=== PATIENT | female | born 1945 | race Caucasian/White ===

== ENCOUNTER 2016-06-16 18:42 | Emergency (ER) | payer MEDICARE ==
[~2016-06-16] VITALS: Ht 139.7 cm; Wt 57.0 kg
[2016-06-16 18:52] VITALS: BP 112/43
== END 2016-06-16 20:51 | disposition home or self-care (01) ==
LOC: ED 19:00
DX: F10.120 Alcohol abuse with intoxication, uncomplicated (principal); F10.20 Alcohol dependence, uncomplicated
CPT/HCPCS: 99283

== ENCOUNTER 2016-07-31 18:34 | Emergency (ER) | payer MEDICARE ==
[~2016-07-31] VITALS: Ht 154.9 cm; Wt 45.0 kg
[2016-07-31 18:37] VITALS: BP 117/65
== END 2016-07-31 20:50 | disposition home or self-care (01) ==
LOC: ED 20:30
DX: F10.220 Alcohol dependence with intoxication, uncomplicated (principal)
CPT/HCPCS: 99283

== ENCOUNTER 2016-09-04 10:32 | Emergency (ER) | payer MEDICARE ==
[~2016-09-04] VITALS: Ht 149.9 cm; Wt 53.6 kg
[2016-09-04 10:34] VITALS: BP 142/83
[2016-09-04] MEDS ORDERED: ONDANSETRON 2MG/ML, 2ML ONE (11:09)
[2016-09-04] MEDS ORDERED: MECLIZINE CHEWABLE 25 MG TAB ONE (11:09)
[2016-09-04] MEDS ORDERED: SODIUM CHLORIDE FLUSH 10ML SYR IVF ONE (11:30)
[2016-09-04] MEDS ORDERED: SODIUM CHLORIDE 0.9% 1,000ML IVBOLUS ONE (11:30)
[2016-09-04] MEDS ORDERED: MECLIZINE CHEWABLE 25 MG TAB PO ONE (11:30)
[2016-09-04] MEDS ORDERED: ONDANSETRON 2MG/ML, 2ML IVPush ONE (11:30)
[2016-09-04 11:52] LABS: BLOOD UREA NITROGEN 20 mg/dL (7-18)
== END 2016-09-04 12:56 | disposition home or self-care (01) ==
LOC: ED 10:56
DX: H81.13 Benign paroxysmal vertigo, bilateral (principal)
CPT/HCPCS: 36415; 70450; 80048; 82040; 85025; 96374; 99285; J2405; J7030

== ENCOUNTER 2016-11-13 18:58 | Emergency (ER) | payer MEDICARE ==
[~2016-11-13] VITALS: Ht 152.4 cm; Wt 55.0 kg
[2016-11-13 19:01] VITALS: BP 91/46
== END 2016-11-13 20:23 | disposition home or self-care (01) ==
LOC: ED 19:19
DX: F10.220 Alcohol dependence with intoxication, uncomplicated (principal)
CPT/HCPCS: 99283

== ENCOUNTER 2017-04-08 17:09 | Emergency (ER) | payer MEDICARE ==
[~2017-04-08] VITALS: Ht 162.6 cm; Wt 54.0 kg
[2017-04-08] MEDS ORDERED: TRAZ100T15 PO (17:22)
[2017-04-08] MEDS ORDERED: CYAN100014 PO (17:22)
[2017-04-08] MEDS ORDERED: FLUO10CA13 PO (17:23)
[2017-04-08] MEDS ORDERED: SODIUM CHLORIDE FLUSH 10ML SYR IVF ONE (17:30)
[2017-04-08] MEDS ORDERED: SODIUM CHLORIDE 0.9% 1,000ML IVBOLUS ONE (17:30)
[2017-04-08 18:08] LABS: BASOPHILS # (AUTO) 0.01 x10^3/uL (0-0.1); BASOPHILS % (AUTO) 0 % (0-1); EOSINOPHILS # (AUTO) 0.04 x10^3/uL (0-0.4); EOSINOPHILS % (AUTO) 1 % (1-7); LYMPHOCYTES # (AUTO) 0.85 x10^3/uL (1-3.4); LYMPHOCYTES % (AUTO) 15 % (22-44); MD NO; MEAN CORPUSCULAR HEMOGLOBIN 35.5 pg (27.0-34.8); MEAN CORPUSCULAR HGB CONC 33.6 g/dL (32.4-35.8); MEAN CORPUSCULAR VOLUME 105.6 fL (80-100); MEAN PLATELET VOLUME 7.7 fL (7.4-10.4); MONOCYTES # (AUTO) 0.37 x10^3/uL (0.2-0.8); MONOCYTES % (AUTO) 7 % (2-9); NEUTROPHILS # (AUTO) 4.34 x10^3/uL (1.8-6.8); NEUTROPHILS % (AUTO) 77 % (42-75); PLATELET COUNT 226 x10^3/uL (130-400); RED BLOOD COUNT 4.26 x10^6/uL (3.82-5.3); RED CELL DISTRIBUTION WIDTH 16.3 % (9.6-15.2)
[2017-04-08 18:16] LABS: INTERNATIONAL NORMALIZED RATIO 0.93 (0.93-1.1); PROTHROMBIN TIME 9.7 Seconds (9.6-11.5)
[2017-04-08 18:20] LABS: ALANINE AMINOTRANSFERASE 19 U/L (12-78); ALBUMIN 4.1 g/dL (3.4-5.0); CALCIUM 8.8 mg/dL (8.5-10.1); CHLORIDE 107 mmol/L (98-107)
[2017-04-08 18:26] LABS: ALKALINE PHOSPHATASE 53 U/L (45-117); ANION GAP 11 mmol/L (5-15); BILIRUBIN,TOTAL 0.5 mg/dL (0.2-1.0); TOTAL PROTEIN 7.7 g/dL (6.4-8.2)
[2017-04-08 19:25] VITALS: BP 98/50
== END 2017-04-08 19:50 | disposition home or self-care (01) ==
LOC: ED 19:35
DX: S09.90XA Unspecified injury of head, initial encounter (principal); F10.229 Alcohol dependence with intoxication, unspecified; X58.XXXA Exposure to other specified factors, initial encounter; Y93.89 Activity, other specified; Y92.89 Other specified places as the place of occurrence of the external cause; Y99.8 Other external cause status
CPT/HCPCS: 36415; 70450; 70486; 72125; 80053; 85025; 85610; 96360; 99285; J7030

== ENCOUNTER 2017-07-02 18:10 | Emergency (ER) | payer MEDICARE ==
[~2017-07-02] VITALS: Ht 149.9 cm; Wt 54.0 kg
[~2017-07-02 18:10] MED LIST: CYAN100014 PO; FLUO10CA13 PO; TRAZ100T15 PO
[2017-07-02 18:11] VITALS: BP 106/51
== END 2017-07-02 21:30 | disposition home or self-care (01) ==
LOC: ED 20:03
DX: F10.220 Alcohol dependence with intoxication, uncomplicated (principal)
CPT/HCPCS: 99283

== ENCOUNTER 2017-07-05 15:26 | Emergency (ER) | payer MEDICARE ==
[~2017-07-05] VITALS: Ht 152.4 cm; Wt 53.0 kg
[2017-07-05 17:00] VITALS: BP 92/54
== END 2017-07-05 17:47 | disposition home or self-care (01) ==
LOC: ED 16:52
DX: F10.120 Alcohol abuse with intoxication, uncomplicated (principal); W18.30XA Fall on same level, unspecified, initial encounter; Y93.89 Activity, other specified; Y99.8 Other external cause status; Y92.89 Other specified places as the place of occurrence of the external cause
CPT/HCPCS: 99283

== ENCOUNTER 2017-07-23 19:36 | Emergency (ER) | payer MEDICARE ==
[~2017-07-23] VITALS: Ht 152.4 cm; Wt 57.0 kg
[2017-07-23] MEDS ORDERED: DIPH,PERTUSS(ACELL),TET VAC/PF 0.5 ML IM-VACC ONE ×2 (20:00→20:07)
[2017-07-23 21:21] VITALS: BP 139/76
== END 2017-07-23 21:32 | disposition home or self-care (01) ==
LOC: ED 20:54
DX: S01.01XA Laceration without foreign body of scalp, initial encounter (principal); W18.30XA Fall on same level, unspecified, initial encounter; W19.XXXA Unspecified fall, initial encounter; Y93.89 Activity, other specified; Y92.89 Other specified places as the place of occurrence of the external cause; Y99.8 Other external cause status
CPT/HCPCS: 12001; 70450; 72125; 90471; 90715; 99284

== ENCOUNTER 2017-07-30 11:37 | Emergency (ER) | payer MEDICARE ==
[~2017-07-30] VITALS: Ht 152.4 cm; Wt 54.5 kg
[2017-07-30 11:41] VITALS: BP 145/76
== END 2017-07-30 12:33 | disposition home or self-care (01) ==
LOC: ED 12:20
DX: S01.01XD Laceration without foreign body of scalp, subsequent encounter (principal); F10.20 Alcohol dependence, uncomplicated; X58.XXXD Exposure to other specified factors, subsequent encounter
CPT/HCPCS: 99282

== ENCOUNTER 2017-10-01 17:00 | Emergency (ER) | payer MEDICARE ==
[~2017-10-01] VITALS: Ht 165.1 cm; Wt 68.2 kg
[2017-10-01 17:02] VITALS: BP 119/61
== END 2017-10-01 17:21 | disposition home or self-care (01) ==
LOC: ED 17:15
DX: F10.120 Alcohol abuse with intoxication, uncomplicated (principal); Z72.9 Problem related to lifestyle, unspecified
CPT/HCPCS: 99283

== ENCOUNTER 2017-12-20 15:58 | Emergency (ER) | payer MEDICARE ==
[~2017-12-20] VITALS: Ht 154.9 cm; Wt 70.0 kg
[~2017-12-20 15:58] MED LIST changes: +TRAZ-137 PO; -TRAZ100T15 PO
[2017-12-20 16:19] LABS: BASOPHILS # (AUTO) 0.05 x10^3/uL (0-0.1); BASOPHILS % (AUTO) 1 % (0-1); EOSINOPHILS # (AUTO) 0.15 x10^3/uL (0-0.4); EOSINOPHILS % (AUTO) 2 % (1-7); LYMPHOCYTES # (AUTO) 1.43 x10^3/uL (1-3.4); LYMPHOCYTES % (AUTO) 21 % (22-44); MD NO; MEAN CORPUSCULAR HEMOGLOBIN 34.7 pg (27.0-34.8); MEAN CORPUSCULAR HGB CONC 33.7 g/dL (32.4-35.8); MEAN CORPUSCULAR VOLUME 102.9 fL (80-100); MEAN PLATELET VOLUME 8.3 fL (7.4-10.4); MONOCYTES # (AUTO) 0.42 x10^3/uL (0.2-0.8); MONOCYTES % (AUTO) 6 % (2-9); NEUTROPHILS # (AUTO) 4.72 x10^3/uL (1.8-6.8); NEUTROPHILS % (AUTO) 70 % (42-75); PLATELET COUNT 211 x10^3/uL (130-400); RED BLOOD COUNT 3.83 x10^6/uL (3.82-5.3); RED CELL DISTRIBUTION WIDTH 14.1 % (9.6-15.2)
[2017-12-20 16:32] LABS: ALANINE AMINOTRANSFERASE 24 U/L (12-78); ALBUMIN 3.4 g/dL (3.4-5.0); ANION GAP 10 mmol/L (5-15); CALCIUM 7.9 mg/dL (8.5-10.1); CHLORIDE 112 mmol/L (98-107); CREATININE 0.64 mg/dL (0.55-1.02)
[2017-12-20 16:33] LABS: ALKALINE PHOSPHATASE 58 U/L (45-117); BILIRUBIN,TOTAL 0.2 mg/dL (0.2-1.0); TOTAL PROTEIN 6.5 g/dL (6.4-8.2)
[2017-12-20 17:00] VITALS: BP 107/47
== END 2017-12-20 17:02 | disposition home or self-care (01) ==
LOC: ED 16:17
DX: F10.120 Alcohol abuse with intoxication, uncomplicated (principal); R41.82 Altered mental status, unspecified
CPT/HCPCS: 36415; 80053; 85025; 99284

== ENCOUNTER 2020-03-13 15:50 | Emergency (ER) | payer MEDICARE ==
[~2020-03-13] VITALS: Ht 162.6 cm; Wt 68.0 kg
[~2020-03-13 15:50] MED LIST changes: -TRAZ-137 PO; +TRAZ-175 PO
--- NOTE | 2020-03-13 16:04 | NUR ---
PT BIB EMS AFTER A WITNESSED GROUND LEVEL FALL. PER EMS THEY WERE CALLED ON HER TWICE. THE FIRST CALL FOR SITTING IN THE MIDDLE OF THE STREET "SHE WAS AOX4, YET COMBATIVE, SHE LEFT OUR CARE AMA. ABOUT 20 MINUTES WE GOT ANOTHER CALL FROM AN [facility] WHERE THE CAREER DEVELOPMENT SPECIALIST HAD SEEN HER WALKING AND FALL FACE FIRST, FACE PLANTING INTO THE PAVEMENT. WHEN WE ARRIVED THE SECOND TIME SHE WAS AOX2 AND MORE COMBATIVE" PT IN C COLLAR. BLOODY MOUTH. LEFT EYE BRUISE. PT REFUSING TO ANSWER "AO" QUESTIONS APPROPRIATELY - "I KNOW WHAT YOU DO HERE! I KNOW WHAT YOURE TRYING TO DO! I AM FINE" PER THE COURIER DELIVERY DRIVER "IT DIDNT SEEM LIKE A SZ TO ME" PT CONNECTED TO MONITORING EQUIPMENT, SIDE RAILS UP, RESTING IN GURNEY WITHIN VIEW OF NURSES STATION
[2020-03-13 16:36] LABS: BASOPHILS % (AUTO) 1 % (0-1); EOSINOPHILS % (AUTO) 1 % (1-7); LYMPHOCYTES % (AUTO) 13 % (22-44); MEAN CORPUSCULAR HGB CONC 33.9 g/dL (32.4-35.8); MEAN PLATELET VOLUME 8.4 fL (7.4-10.4); MONOCYTES % (AUTO) 5 % (2-9); NEUTROPHILS % (AUTO) 81 % (42-75); PLATELET COUNT 211 x10^3/uL (130-400); RED BLOOD COUNT 4.75 x10^6/uL (3.82-5.3); RED CELL DISTRIBUTION WIDTH 13.8 % (9.6-15.2)
[2020-03-13 16:38] LABS: MD NO
[2020-03-13 16:52] LABS: ALBUMIN 3.9 g/dL (3.4-5.0); ANION GAP 8 mmol/L (5-15); CALCIUM 8.7 mg/dL (8.5-10.1); CHLORIDE 108 mmol/L (98-107); CREATININE 0.93 mg/dL (0.55-1.02)
--- NOTE | 2020-03-13 17:02 | NUR ---
pt to CT
[2020-03-13] MEDS ORDERED: ZIPRASIDONE 20 MG INJ IM ONE ×3 (17:30→18:00)
--- NOTE | 2020-03-13 17:37 | NUR ---
PT REPEATEDLY GETTING OUT OF BED. UNSTABLE ON HER FEET. PT ESCORTED BACK TO BED WITH GURADED ASSIST. PT COMBATIVE - SWING HER ARMS. "FUCK YOU, FUCK YOU, I HOPE YOU ". NOTIFIED. SEE MAR FOR INTERVENTIONS
--- NOTE | 2020-03-13 18:05 | NUR ---
PT UP OUT OF BED, RIPPED IV OUT OF HER HAND. SCREAMING "F YOU". PT ESCORTED BACK TO BED WITH GUARD ASSIST. MEDICATED PER MAR. WILL CONTINUE TO MONITOR
--- NOTE | 2020-03-13 18:21 | NUR ---
CT SCAN DELAYED TO PT BEHAVIOR. CT NOTIFIED THAT PT IS ABLE TO CONDUCT SCAN AT THIS TIME
--- NOTE | 2020-03-13 18:29 | NUR ---
PT RESTING IN [facility]. PLACED ON MONITORS. EKG IS BEING COMPLETED
--- NOTE | 2020-03-13 18:57 | NUR ---
PT RESTING ON GURNEY. CALM. VSS. NAD. WILL CONTINUE TO MONITOR
--- NOTE | 2020-03-13 19:54 | NUR ---
PT RESTING IN [facility]. VSS. NAD
--- NOTE | 2020-03-13 22:19 | NUR ---
Report from ROSHAN Sanabria. Pt sleeping, RR equal and unlabored, wakes up with stimuli, slurred speach. MTF, will continue to monitor.
--- NOTE | 2020-03-13 23:02 | NUR ---
Pt now able to safely navigate the community, steady gait, VSS, no IV access. Pt left with all belongings. To f/u with clinic, return to ER if worse or concerns.
[2020-03-13 23:03] VITALS: BP 135/71
== END 2020-03-13 23:07 | disposition home or self-care (01) ==
LOC: ED 20:32
DX: S09.90XA Unspecified injury of head, initial encounter (principal); M54.2 Cervicalgia; G31.2 Degeneration of nervous system due to alcohol; W19.XXXA Unspecified fall, initial encounter; Y93.89 Activity, other specified; Y92.488 Other paved roadways as the place of occurrence of the external cause; Y99.8 Other external cause status
CPT/HCPCS: 36415; 70450; 70486; 72125; 80048; 80320; 82040; 85025; 93005; 96372; 99285; J3486; G0480